=== PATIENT | female | born 1955 | race Caucasian/White ===

== ENCOUNTER 2018-03-25 09:45 | Outpatient (CLI) | payer OTHER ==
--- NOTE | 2018-03-25 13:19 | PET ---
PET SCAN WITH CT ATTENUATION CORRECTION: HISTORY: Abnormal chest CT. Right lung mass. COMPARISON: None. CORRELATION: Chest CT from the [facility] from August 2017. TECHNIQUE: A PET scan with CT attenuation correction was performed from the skull base to the proximal thighs, f ollowing the intravenous administration of 11.4 millicuries of F18 fluorodeoxyglucose. FINDINGS: HEAD/NECK: No abnormal FDG localization. CHEST: There is FDG avidity involving an irregular marginated mass in the right upper lobe, with a m aximum SUV of 5.3. No additional abnormal FDG localization of the chest. ABDOMEN/PELVIS: No abnormal FDG localization. OSSEOUS STRUCTURES: No abnormal FDG localization. IMPRESSION: Hypermetabolic right upper lobe mass. This mass measures 1.5 x 2[address] used for attenuation cor rection. POS: [facility]
== END 2018-03-25 09:46 | disposition home or self-care (01) ==
LOC: PET 09:45
PROVIDERS: ATTEND Internal Medicine Sleep Medicine
DX: R91.1 Solitary pulmonary nodule (principal); R91.8 Other nonspecific abnormal finding of lung field
CPT/HCPCS: 78815; A9552

== ENCOUNTER 2018-06-04 14:34 | Outpatient (CLI) | payer OTHER ==
[2018-06-04 15:17] LABS: Hemoglobin 14.3 g/dL (12.0-16.0); Mean Corpuscular HGB CONC 35.7 g/dL (32.0-36.0); Mean Corpuscular Hemoglobin 34.4 pg (27.0-31.0); Mean Corpuscular Volume 96.6 fL (78.0-98.0); Mean Platelet Volume 6.9 fL (7.4-10.4); Platelet Count 321 thou/uL (130-400); RBC Distribution Width 11.9 % (11.5-14.5); Red Blood Cell (RBC) Count 4.15 mill/uL (4.20-5.40); White Blood Cell (WBC) Count 10.6 thou/uL (4.8-10.8)
[2018-06-04 15:40] LABS: Anion Gap 13 mmol/L (10-20); BUN (Urea Nitrogen) 8 mg/dL (9.8-20.1); Calc. Creatinine Clearance 0 mL/min (70-130); Calcium 9.6 mg/dL (7.8-10.44); Carbon Dioxide 26 mmol/L (23-31); Chloride 106 mmol/L (98-107); Estimated GFR-MDRD 85; Glucose 133 mg/dL (80-115); Potassium 3.9 mmol/L (3.5-5.1); Sodium 141 mmol/L (136-145)
--- NOTE | 2018-06-04 16:33 | EKG ---
Test Reason : Blood Pressure : / mmHG Vent. Rate : 091 BPM Atrial Rate : 091 BPM P-R Int : 134 ms QRS Dur : 084 ms QT Int : 356 ms P-R-T Axes : 080 089 079 degrees QTc Int : 437 ms Normal sinus rhythm Right atrial enlargement Borderline ECG No previous ECGs available Confirmed by MARY GRULLON, DR. Stewart ([id number]) on 06/04/2018 4:32:40 PM Referred By: ERNST Confirmed By:DR. Pat HERNANDEZ MD
== END 2018-06-04 14:35 | disposition home or self-care (01) ==
LOC: LABBT 14:34
PROVIDERS: ATTEND Thoracic Surgery (Cardiothoracic Vascular Surgery)
DX: Z01.818 Encounter for other preprocedural examination (principal); R91.8 Other nonspecific abnormal finding of lung field
CPT/HCPCS: 80048; 85027; 86850; 86900; 86901; 93005; 93010

== ENCOUNTER 2018-06-07 07:45 | Inpatient (IN) | payer OTHER ==
--- NOTE | 2018-06-06 19:19 | HP ---
DATE OF ADMISSION: 06/07/2018 HISTORY OF PRESENT ILLNESS: This is a lady followed by Pulmonary Service with a pulmonary nodule in the right upper lobe. It was initially picked up at least 1 year ago; however, she did not wish to h ave any intervention. A PET scan done recently showed increased activity in the lesion with no other suspicious lesions and referred for resection on 04/06/2018. However, when she was examined at that time, there were two issues that prevented scheduling of the surgical procedure. First, she had an active case of herpes zoster on her left flank and secondly, she had continued to smoke about a pack of cigarettes a day. She also was drinking regularly. She was told to schedule her surgery when she had been off of cigarettes 2 weeks which she has done. Further workup includes an FEV1 of 1.45. PAST SURGICAL HISTORY: Cholecystectomy, tubal ligation and vulvar cancer resection. MEDICATIONS: Acyclovir 200 mg 4 times a day, Anoro Ellipta 62.5/25 one puff daily. ALLERGIES: None known. PHYSICAL EXAMINATION: GENERAL: Alert, cooperative lady. Height 5 feet 6 inches. Weight 138, well-nourished. LUNGS: Reveal rhonchi with no wheezes. CARDIAC: Regular rate and rhythm. No murmurs. NECK: No cervical adenopathy, no bruits. ABDOMEN: Soft, nontender. EXTREMITIES: No edema. PLAN: At this time is for right thoracoscopy/thoracotomy with probable right upper lobectomy with di agnosis of the right upper lobe lesion.
[2018-06-09] MEDS ORDERED: CEFAZOLIN/Water 2 GM/20 ML SYRINGE ONE (06:30)
[2018-06-09] MEDS ORDERED: Fentanyl 100 MCG/2 ML VIAL ONE ×4 (07:12→12:21)
[2018-06-09] MEDS ORDERED: Midazolam HCl 2 mg/2 ml Vial ONE (07:12)
[2018-06-09] MEDS ORDERED: Bupivacaine/Epinephrine 0.25% 30 ML VIAL ONE (08:30)
[2018-06-09] MEDS ORDERED: Lidocaine 1% (PF) 30 ML VIAL ONE (08:41)
[2018-06-09] MEDS ORDERED: Hydrocerin (Eucerin) Cream 120 gm Jar TOP PRN (09:15)
[2018-06-09] MEDS ORDERED: Ondansetron HCl/PF 4 MG/2 ML Vial IVP PRN ×3 (09:15→12:51)
[2018-06-09] MEDS ORDERED: Naloxone HCl 0.4 mg/ml Vial IVP PRN (09:15)
[2018-06-09] MEDS ORDERED: diphenhydrAMINE 25 MG CAP PO PRN (09:15)
[2018-06-09] MEDS ORDERED: Zolpidem Tartrate 5 MG TAB PO PRN (09:15)
[2018-06-09] MEDS ORDERED: diphenhydrAMINE 50 MG/ML VIAL IVP PRN (09:15)
[2018-06-09] MEDS ORDERED: Bupivacaine 0.25% 10 ML VIAL EPIDURAL PRN (09:15)
[2018-06-09] MEDS ORDERED: traMADol HCl 50 MG TAB PO PRN (09:15)
[2018-06-09] MEDS ORDERED: Promethazine HCl 25 MG/ML VIAL IM PRN ×2 (09:15→11:50)
[2018-06-09] MEDS ORDERED: Promethazine HCl 25 MG SUPP PR PRN (09:15)
[2018-06-09] MEDS ORDERED: Naloxone HCl 0.4 mg/ml Vial IV PRN (09:15)
[2018-06-09] MEDS ORDERED: HYDROcodone/Acetaminophen 5/325 mg Tablet PO PRN ×3 (09:15→12:51)
[2018-06-09] MEDS ORDERED: diphenhydrAMINE 50 MG/ML VIAL IM PRN (09:15)
[2018-06-09 09:47] VITALS: BMI 22.2
[2018-06-09] MEDS ORDERED: HYDROmorphone 2 MG/ML VIAL SLOW IVP PRN (11:50)
[2018-06-09] MEDS ORDERED: Meperidine HCl/PF 25 MG/ML VIAL SLOW IVP PRN (11:50)
[2018-06-09] MEDS ORDERED: Promethazine HCl 25 MG/ML VIAL SLOW IVP PRN ×2 (11:50→12:51)
[2018-06-09] MEDS ORDERED: niCARdipine HCl 25 MG in Sodium Chloride 0.9% 250 ML 240 ML IVPB PRN (12:51)
[2018-06-09] MEDS ORDERED: Phenylephrine 10 MG/NS 250 ML 250 ML IVPB PRN (12:51)
[2018-06-09] MEDS ORDERED: Fentanyl 100 MCG/2 ML VIAL SLOW IVP PRN ×2 (12:51)
[2018-06-09] MEDS ORDERED: Ketorolac Tromethamine 30 MG/ML VIAL ONE (12:55)
[2018-06-09] MEDS ORDERED: Acetaminophen 1,000 MG in Premix Bag 1 BAG IVPB PRN (13:03)
[2018-06-09] MEDS ORDERED: Ketorolac Tromethamine 30 MG/ML VIAL IVP SCH (13:15)
--- NOTE | 2018-06-09 13:28 | RAD ---
CHEST 1 VIEW: Date: 06/09/18 HISTORY: Thoracotomy. COMPARISON: PET CT dated 03/25/18. FINDINGS: Two right thoracostomy tubes are in place. Small right apical pneumothorax. Mild right subcutaneous e mphysema. There are atelectatic changes of right lung base. Left lung relatively clear. A wire is coiled over the left neck to the mediastinum. IMPRESSION: Minimal right pneumothorax with thoracostomy. POS: [facility]
[2018-06-09] MEDS ORDERED: Dexamethasone 20 MG/5 ML VIAL ONE (13:54)
[2018-06-09] MEDS ORDERED: PROPOFOL 200 MG/20 ML VIAL ONE (13:54)
[2018-06-09] MEDS ORDERED: PHENYLEPHRINE-NS 100 MCG/ML 10 ML SYRINGE ONE (13:54)
[2018-06-09] MEDS ORDERED: Ondansetron HCl/PF 4 MG/2 ML Vial ONE (13:54)
[2018-06-09] MEDS ORDERED: Lidocaine 1% PF 5 ML VIAL ONE (13:54)
[2018-06-09] MEDS ORDERED: Glycopyrrolate 0.2 MG/ML 5 ML SYRINGE ONE (13:54)
[2018-06-09] MEDS: CEFAZOLIN/Water 2 GM/20 ML SYRINGE SLOW IVP SCH ×2 (14:09→21:15)
[2018-06-09] MEDS: Sodium Chloride 0.9% 1,000 ML IV SCH (14:10)
[2018-06-09] MEDS: HYDROcodone/Acetaminophen 5/325 mg Tablet PO PRN ×2 (17:17→21:15)
[2018-06-10] MEDS: HYDROcodone/Acetaminophen 5/325 mg Tablet PO PRN ×2 (01:01→05:09)
[2018-06-10] MEDS: Sodium Chloride 0.9% 1,000 ML IV SCH (05:19)
[2018-06-10 05:29] LABS: #Basophils 0.1 thou/uL (0.0-0.2); #Lymphocytes 2.5 thou/uL (1.20-3.40); #Neutrophils 9.7 thou/uL (1.40-6.50); %Basophils 0.5 % (0.0-1.0); %Eosinophils 0.2 % (0.0-10.0); %Lymphocytes 18.9 % (21.0-51.0); %Monocytes 7.6 % (0.0-10.0); %Neutrophils 72.9 % (42.0-75.0); Hemoglobin 12.1 g/dL (12.0-16.0); Mean Corpuscular HGB CONC 33.8 g/dL (32.0-36.0); Mean Corpuscular Hemoglobin 33.4 pg (27.0-31.0); Mean Corpuscular Volume 98.8 fL (78.0-98.0); Mean Platelet Volume 6.6 fL (7.4-10.4); Platelet Count 303 thou/uL (130-400); RBC Distribution Width 12.2 % (11.5-14.5); Red Blood Cell (RBC) Count 3.63 mill/uL (4.20-5.40); White Blood Cell (WBC) Count 13.3 thou/uL (4.8-10.8)
[2018-06-10 05:50] LABS: Anion Gap 14 mmol/L (10-20); BUN (Urea Nitrogen) 10 mg/dL (9.8-20.1); Calc. Creatinine Clearance 91 mL/min (70-130); Calcium 8.6 mg/dL (7.8-10.44); Carbon Dioxide 25 mmol/L (23-31); Chloride 103 mmol/L (98-107); Estimated GFR-MDRD Greater than 90; Glucose 118 mg/dL (80-115); Potassium 4.1 mmol/L (3.5-5.1); Sodium 138 mmol/L (136-145)
[2018-06-10] MEDS: CEFAZOLIN/Water 2 GM/20 ML SYRINGE SLOW IVP SCH (06:12)
--- NOTE | 2018-06-10 06:58 | CON ---
DATE OF CONSULTATION: 06/09/2018 HISTORY OF PRESENT ILLNESS: Rohini Wheeler is a 62-year-old female followed by a light cleaner in [facility]. She has had a pulmonary nodule that has been followed for some time that she declined workup. Apparently recently done showed abnormal uptake. She is a heavy smoker, was drinking regularly, and was told to stop smoking and drinking so that she can more safely have surgery. This was done today. Preoperative FEV1 was 1.5. She has undergone lobectomy. She was admitted to the ICU postoperatively, extubated in no distress. With minimal complaints of pain, she was awake and alert. PAST MEDICAL HISTORY: Remarkable for a vulvar cancer resection, tubal ligation , and a cholecystectomy. She recently had shingles, so she was on acyclovir. She is on . SOCIAL HISTORY: She is not smoking now. She is a nondrinker. She reports no drug allergies. She has been a drinker in the past. FAMILY HISTORY: Non contributory REVIEW OF SYSTEMS: 10 point system review completed, otherwise negative. PHYSICAL EXAMINATION: GENERAL: She is very pleasant, in no distress. HEENT: Pupils are equal. Sclerae are anicteric. Extraocular movements are intact. NECK: Supple. LUNGS: Clear. HEART: Regular rhythm, no S3. ABDOMEN: Soft and nontender. EXTREMITIES: Without clubbing, cyanosis, or edema. She is bedridden postoperatively, but grossly her neuro exam is nonfocal. EYES: Extraocular movements are intact. IMPRESSION: Status post lobectomy, clinically stable, postoperatively. We will be happy to follow her while she is in the Critical Care Unit. Postoperative chest radiograph shows proper placement of her chest tubes with tiny apical pneumothorax. This is a 70 minute consult with greater than 50% of time spent on unit with coordination of care. JOYCE
--- NOTE | 2018-06-10 07:08 | OP ---
PREOPERATIVE DIAGNOSIS: Right upper lobe lesion. POSTOPERATIVE DIAGNOSES: Right upper lobe lesion. Non-small cell carcinoma of the lung. PROCEDURE: Right upper lobectomy through a combined thoracoscopic and open approach as well as mediastinal lymph node dissection. SURGEON: Santy Garcia MD ANESTHESIA: General. ESTIMATED BLOOD LOSS: Less than 100. PROCEDURE IN DETAIL: After adequate anesthesia had been obtained, the patient was prepped and draped. Incision site was chosen for port and scope was inserted. The patient was noted to have adhesions between the right upper lobe posteriorly and the chest wall. A posterolateral muscle sparing incision was then made and carried down through the fifth intercostal space. A retractor was placed here and with the assistance of the scope, adhesions were taken down primarily with the Bovie accounting director, although blunt dissection was also used with the Kitner. After taking down these adhesions, hemostasis was obtained. The lesion was palpable in the anterior aspect of the upper lobe and wedge resection was carried out to allow diagnosis. This returned non-small cell carcinoma. The fissure between the upper and lower lobe was taken down and then the fissure between the upper and middle lobe was partially mobilized. Pulmonary artery branches to the upper lobe were individually controlled with the vascular stapler as was the pulmonary vein. Following this, the fissure was completed with the green staple loads and the bronchus was then divided with the green staple loads ensuring good inflation of the middle and lower lobe prior to completing this portion. After removing the specimen, mediastinal lymph node dissection was carried superior and posterior to the azygous vein, although no suspicious lymph nodes were noted during the harvest. Inferior pulmonary ligament was mobilized and no significant lymphadenopathy was identified here. After ensuring good hemostasis, water was placed in the chest cavity and the bronchial stump was tested to 40 cm and was not leaking air. Following this, 2 pleural drains were placed, a #28 straight and 32 right- angle. Ribs were then reapproximated with #2 catgut suture and muscle layers were loosely reapproximated. Subcutaneous tissue and skin were closed in layers. The patient is to be taken to the ICU in guarded condition. [facility]
[2018-06-10] MEDS: traMADol HCl 50 MG TAB PO PRN ×2 (09:38→17:38)
--- NOTE | 2018-06-10 09:42 | RAD ---
PORTABLE CHEST: Date: 06-10-18 Provided Clinical History: Status post thoracotomy. FINDINGS: Comparison 06-09-18. Cardiac and mediastinal silhouette is unchanged in appearance. Right sided chest tubes are again note d, the more inferior which demonstrates the proximal side hole lucency to overlie the lateral most as pect of the right chest wall. There is a small right pneumothorax. Left lung appears clear. IMPRESSION: Small right sided pneumothorax. Chest tubes as above. POS: [facility]
--- NOTE | 2018-06-10 10:37 | PRG ---
DATE OF SERVICE: 06/10/2018 SUBJECTIVE: Ms. Rohini Wheeler has no complaints. PHYSICAL EXAMINATION: VITAL SIGNS: She is afebrile, heart rate 74, respiratory rate 18, oximetry is 98 on 2 liters, blood pressure 102/64. LUNGS: Remarkable for equal breath sounds. Chest tube shows small air leak. HEART: Regular rhythm. ABDOMEN: Soft. IMAGING: Chest radiograph shows a small right-sided pneumothorax. IMPRESSION: 1. Status post lobectomy for nonsmall cell lung cancer. 2. Chronic obstructive pulmonary disease, clinically stable with no bronchospasm, no shortness of br eath. PLAN: Continue postop care. Chest tube suction per Surgery.
[2018-06-10] MEDS: fentaNYL Citrate/PF 1,250 MCG, Bupivacaine 25 ML in Sodium Chloride 0.9% 250 ML 200 ML EPIDURAL SCH (12:05)
[2018-06-11] MEDS: traMADol HCl 50 MG TAB PO PRN ×4 (00:05→20:37)
[2018-06-11] MEDS: Ketorolac Tromethamine 30 MG/ML VIAL IVP PRN ×2 (03:46→12:46)
--- NOTE | 2018-06-11 09:33 | RAD ---
CHEST 1 VIEW: Date: 06/11/18 HISTORY: 62-year-old female with history of status post thoracotomy. COMPARISON: 06/10/18. FINDINGS: Two right chest tubes in place. No significant residual right-sided pneumothorax. Minimal increased l inear and interstitial markings bilaterally, stable. Prominent atherosclerotic ectatic changes of the aorta, as well as the innominate artery region. IMPRESSION: Two right chest tubes in place without significant residual pneumothorax. Mild stable increased linea r and interstitial markings bilaterally. POS: [facility]
[2018-06-11] MEDS: fentaNYL Citrate/PF 1,250 MCG, Bupivacaine 25 ML in Sodium Chloride 0.9% 250 ML 200 ML EPIDURAL SCH (14:11)
--- NOTE | 2018-06-11 15:28 | PRG ---
DATE OF SERVICE: 06/11/2018 SUBJECTIVE: Ms. Wheeler did well overnight. She has no complaints. She still has a small air leak. S he has bilateral equal breath sounds. OBJECTIVE: HEART: Regular rhythm. ABDOMEN: Soft. She was wheezing a tiny bit today, but says that the nebulizer treatments are helping. IMAGING: Chest radiograph shows no pneumothorax today. Hopefully, her chest tube will be able to go to water seal within 24-48 hours. We will continue to mag yost along with the other physicians.
[2018-06-11] MEDS: Enoxaparin Sodium 30 MG/0.3 ML SYRINGE SC SCH (21:01)
[2018-06-12] MEDS: traMADol HCl 50 MG TAB PO PRN ×3 (06:56→18:41)
--- NOTE | 2018-06-12 08:48 | RAD ---
RADIOGRAPH CHEST 1 VIEW: Date: 06/12/18 Time: 0620 HOURS HISTORY: 62-year-old female status post thoracotomy. COMPARISON: 06/10/18. FINDINGS: The two right-sided chest tubes remain, one at the apex and the other overlying the right lateral low er lung zone. Right hilar shadow is prominent. Cardiac transverse diameter is at the upper limits of normal. No pulmonary edema. Prominent interstitial markings throughout the right mid and lower lung z ones. No consolidation. Widening of the mediastinum, especially right side. The previously demonstrat ed tiny right apical pneumothorax is no longer visible. There has been no other interval change. IMPRESSION: 1. The tiny right apical pneumothorax is no longer visible. 2. Two right-sided chest tubes remain. AUBRIE [] POS: [facility]
[2018-06-12] MEDS ORDERED: HYDROcodone/Acetaminophen 5/325 mg Tablet PO PRN (10:54)
[2018-06-12] MEDS: HYDROcodone/Acetaminophen 5/325 mg Tablet PO PRN ×3 (10:59→21:36)
[2018-06-12] MEDS: fentaNYL Citrate/PF 1,250 MCG, Bupivacaine 25 ML in Sodium Chloride 0.9% 250 ML 200 ML EPIDURAL SCH (15:20)
--- NOTE | 2018-06-12 16:04 | PRG ---
DATE OF SERVICE: 06/12/2018 SUBJECTIVE: Ms. Wheeler did well overnight. Her chest tube water seal. She is having some chest discomfort as expected. OBJECTIVE: VITAL SIGNS: She is afebrile, heart rate is 81, respiratory rate is 19, oximetry is 97 on 2 liters, blood pressure 166/89. LUNGS: Remarkable for equal breath sounds. HEART: Regular rhythm. S1 and S2 are normal. ABDOMEN: Soft. IMAGING: Chest radiograph shows no pneumothorax. IMPRESSION: 1. Status post lobectomy for non-small cell lung cancer. Pathology is still pending. 2. Underlying obstructive lung disease, clinically stable with nebulized ipratropium and albuterol. PLAN: Continue same.
[2018-06-12] MEDS: Enoxaparin Sodium 30 MG/0.3 ML SYRINGE SC SCH (19:37)
[2018-06-13] MEDS: HYDROcodone/Acetaminophen 5/325 mg Tablet PO PRN ×4 (06:45→21:55)
[2018-06-13] MEDS: traMADol HCl 50 MG TAB PO PRN ×2 (06:45→13:51)
--- NOTE | 2018-06-13 11:35 | RAD ---
RADIOGRAPH CHEST 1 VIEW: Date: 06/13/18 Time: 0641 hours HISTORY: 62-year-old female status post thoracotomy. COMPARISON: 06/12/18 at 0620 hours. FINDINGS: The right pneumothorax has become larger now, and currently occupies approximately 10% volume of the right hemithorax. No change in position of the two right-sided chest tubes. Right hilar prominence. N o congestive heart failure or pulmonary edema. Left lung is clear. IMPRESSION: Interval increase in size of small right apical pneumothorax. AUBRIE [] POS: [facility]
--- NOTE | 2018-06-13 16:14 | PRG ---
DATE OF SERVICE: 06/13/2018 Ms. Wheeler did well overnight with no complaints. She was placed back on suction this morning. She has small right pneumothorax. She is not wheezing and is not short of breath. Her chest tube is back to suction, so I will continue to follow. Pathology is still pending on her l obectomy.
[2018-06-13] MEDS: fentaNYL Citrate/PF 1,250 MCG, Bupivacaine 25 ML in Sodium Chloride 0.9% 250 ML 200 ML EPIDURAL SCH (16:34)
[2018-06-13] MEDS: Enoxaparin Sodium 30 MG/0.3 ML SYRINGE SC SCH (19:37)
[2018-06-14] MEDS: traMADol HCl 50 MG TAB PO PRN ×2 (02:08→17:27)
[2018-06-14] MEDS: HYDROcodone/Acetaminophen 5/325 mg Tablet PO PRN ×3 (03:49→12:52)
[2018-06-14] MEDS ORDERED: Milk Of Magnesia 30 ML UDCUP PO PRN (07:01)
[2018-06-14] MEDS ORDERED: Bisacodyl 5 MG TAB PO PRN (07:01)
[2018-06-14] MEDS ORDERED: Fleet Enema 133 ML BOT PR PRN (07:02)
[2018-06-14] MEDS: Polyethylene Glycol 3350 17 GM Packet PO SCH (08:11)
--- NOTE | 2018-06-14 09:22 | RAD ---
PORTABLE CHEST 1 VIEW: Date: 06/14/18 Time: 0603 hours HISTORY: status post right thoracotomy. FINDINGS/IMPRESSION: The tiny right apical pneumothorax noted on the previous day's exam is not visualized on the current study. Right-sided chest tubes are again seen. The heart size is normal. Left lung is clear. POS: [facility]
--- NOTE | 2018-06-14 13:10 | PRG ---
DATE OF SERVICE: 06/14/2018 SUBJECTIVE: Ms. Wheeler did well overnight. She still has a chest tube to suction. When I evaluated h er this morning, there was no air leak. Her vital signs have been stable. She is afebrile, heart rate 80, respiratory rate 15, oximetry is 9 3% on 1.5 liters. She has no complaints of shortness of breath. Her lungs are free of wheezes at th is time. IMAGING DATA: Chest radiograph shows no pneumothorax today. IMPRESSION: Recurrent pneumothorax with chest tube back on suction after lobectomy. Hopefully, she will have a waterseal try again tomorrow. We will defer to Cardiothoracic Surgery.
[2018-06-14] MEDS ORDERED: Ibuprofen 200 MG TAB PO PRN (14:39)
[2018-06-14] MEDS ORDERED: HYDROcodone/Acetaminophen 10/325 mg Tablet PO PRN (17:23)
[2018-06-14] MEDS: HYDROcodone/Acetaminophen 10/325 mg Tablet PO PRN (21:41)
[2018-06-14] MEDS: Enoxaparin Sodium 30 MG/0.3 ML SYRINGE SC SCH (21:42)
[2018-06-15] MEDS: HYDROcodone/Acetaminophen 10/325 mg Tablet PO PRN ×4 (03:08→17:46)
[2018-06-15] MEDS ORDERED: Furosemide 20 MG TAB PO SCH (06:00)
[2018-06-15] MEDS ORDERED: HYDROcodone/Acetaminophen 10/325 mg Tablet PO PRN (06:09)
--- NOTE | 2018-06-15 08:05 | RAD ---
PORTABLE CHEST 1 VIEW: Date: 06/15/18 Time: 0647 hours HISTORY: Status post thoracotomy. FINDINGS/IMPRESSION: Comparison made with exam from previous day. Right-sided chest tubes remain in place. A tiny right apical pneumothorax is noted. This was not defi nitely seen on the previous study. POS: [facility]
--- NOTE | 2018-06-15 09:01 | PRG ---
DATE OF SERVICE: 06/15/2018 The patient is doing well. Her air leak seems to have sealed and her chest tube is likely coming out today. PHYSICAL EXAMINATION: VITAL SIGNS: Her vital signs are stable. LUGS: Lungs are clear. CARDIAC: S1 and S2 regular. ABDOMEN: Soft. EXTREMITIES: No edema. ASSESSMENT: Post-lobectomy pneumothorax. PLAN: Hopefully home later today.
[2018-06-15] MEDS: Polyethylene Glycol 3350 17 GM Packet PO SCH ×2 (09:04→11:44)
[2018-06-15 16:00] VITALS: BP 119/75; TEMP 98
--- NOTE | 2018-06-16 03:01 | DIS ---
HOSPITAL COURSE: This is a 62-year-old female referred by Dr. Galvez and Dr. Voss from [facility] for growing 1-2 cm nodule in the right upper lobe that was PET avid. She was initially schedul ed for upper lobectomy at the [facility]; however, due to insurance issues. She required surgery at [facility], which was performed on 06/09/2018 where she underwent a right upper lobectomy through a combined thoracoscopic in open approach with mediastinal lymph node dissection. 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 All lymph nodes were neg ative and staging was T2. Her postoperative course was unremarkable, chest tubes were removed on 05/2018 and she is to be discharged home on that day. Discharge and follow up instructions have been given.
== END 2018-06-15 18:30 | disposition home or self-care (01) | DRG 164 ==
LOC: SURG A 06-09 05:43 → CCU 06-09 13:05 → SURG A 06-10 07:37
PROVIDERS: ADMIT Thoracic Surgery (Cardiothoracic Vascular Surgery); ATTEND Thoracic Surgery (Cardiothoracic Vascular Surgery)
PROC: 0BTC0ZZ Resection of Right Upper Lung Lobe, Open Approach (ICD-10-PCS; principal; 2018-06-09)
PROC: 07T70ZZ Resection of Thorax Lymphatic, Open Approach (ICD-10-PCS; 2018-06-09)
DX: C34.11 Malignant neoplasm of upper lobe, right bronchus or lung (principal); J95.811 Postprocedural pneumothorax; Y83.6 Removal of other organ (partial) (total) as the cause of abnormal reaction of the patient, or of later complication, without mention of misadventure at the time of the procedure; Y82.8 Other medical devices associated with adverse incidents; J44.9 Chronic obstructive pulmonary disease, unspecified; K59.00 Constipation, unspecified
CPT/HCPCS: 36415; 71045; 80048; 85025; 88305; 88307; 88309; 88313; 88331; 88332; 88341; 88342; 94640; G8978-GP-CJ; G8979-GP-CJ; G8980-GP-CJ; J0131; J1100; J1642; J1650; J1885; J2001; J2250; J2405; J2704; J3010; J3490; J7050; J7620

== ENCOUNTER 2018-07-06 14:17 | Outpatient (CLI) | payer OTHER ==
--- NOTE | 2018-07-06 15:13 | RAD ---
PA AND LATERAL CHEST: Date: 07/06/18 HISTORY: Dyspnea. COMPARISON: 06/15/18. FINDINGS: The previously noted right-sided thoracostomy tubes have now been removed. There is evidence of a rig ht-sided pneumothorax, larger at the right lung base, with associated fluid level at the right lung b ase, and findings are most suggestive of a hydropneumothorax. There are postsurgical changes right he mithorax. The left lung is clear with minimal atelectasis present at the left lung base. Vascular bev cifications seen thoracic aorta. Cardiac silhouette and pulmonary vasculature are within normal limit s. IMPRESSION: Right hydropneumothorax. Above findings discussed with Dr. Garcia on 07/06/18 at 1456 hours. CODE CR. POS: [facility]
== END 2018-07-06 14:18 | disposition home or self-care (01) ==
LOC: RAD 14:17
PROVIDERS: ATTEND Thoracic Surgery (Cardiothoracic Vascular Surgery)
DX: R06.00 Dyspnea, unspecified (principal); J94.8 Other specified pleural conditions
CPT/HCPCS: 71046

== ENCOUNTER 2018-07-20 13:56 | Outpatient (CLI) | payer OTHER ==
--- NOTE | 2018-07-20 14:26 | RAD ---
PA AND LATERAL CHEST: Date: 07/20/18 HISTORY: Malignant neoplasm of upper lobe. COMPARISON: 07/06/18. FINDINGS: Heart size is upper limits of normal. The aorta is mildly tortuous. There appears to be some persiste nt right-sided effusion with postoperative changes of the right chest. No pneumothorax is visualized on this examination. IMPRESSION: Persistent right-sided pleural changes. No definite pneumothorax seen. Postoperative changes of the r ight lung. POS: [facility]
== END 2018-07-20 13:57 | disposition home or self-care (01) ==
LOC: RAD 13:56
PROVIDERS: ATTEND Thoracic Surgery (Cardiothoracic Vascular Surgery)
DX: C34.10 Malignant neoplasm of upper lobe, unspecified bronchus or lung (principal); Z98.890 Other specified postprocedural states
CPT/HCPCS: 71046

== ENCOUNTER 2019-10-20 14:42 | Outpatient (CLI) | payer OTHER ==
--- NOTE | 2019-10-20 15:01 | RAD ---
XR Chest Pa Lat @ [facility] HISTORY: Malignant neoplasm upper lobe, bronchus or lung COMPARISON: 07/20/2018 FINDINGS: The heart size is at upper limits of normal. The aorta is tortuous. The lungs are well expa nded without focal areas of consolidation, pneumothorax or pleural effusions. IMPRESSION: No radiographic evidence of acute cardiopulmonary process.
== END 2019-10-20 14:43 | disposition home or self-care (01) ==
LOC: RAD 14:42
PROVIDERS: ATTEND Thoracic Surgery (Cardiothoracic Vascular Surgery)
DX: C34.10 Malignant neoplasm of upper lobe, unspecified bronchus or lung (principal)
CPT/HCPCS: 71046